=== PATIENT | female | born 2000 | race Asian ===

== ENCOUNTER → 2025-01-26 07:32 | Outpatient (REF) | payer BC, SELFPAY ==
[2025-01-28 06:54] LABS: Quantiferon Mitogen minus NIL 9.99 IU/mL; Quantiferon NIL 0.01 IU/mL; Quantiferon TB Gold Plus Negative (Negative)
== END ==
LOC: REG 07:32
PROVIDERS: ATTENDING PHYSICIAN Internal Medicine Geriatric Medicine; REFERRING PHYSICIAN Student in an Organized Health Care Education/Training Program
DX: Z01.84 Encounter for antibody response examination (principal)
CPT/HCPCS: 36415; 86480

== ENCOUNTER → 2025-03-27 20:37 | Outpatient (REF) | payer BC, SELFPAY | LOC: UCDH 20:37 | PROVIDERS: ATTENDING PHYSICIAN Physician Assistant | DX: J02.9 Acute pharyngitis, unspecified (principal) | CPT/HCPCS: 87070 ==

== ENCOUNTER → 2025-05-01 16:17 | Outpatient (REF) | payer BC, SELFPAY | LOC: CLAB 16:17 | PROVIDERS: ATTENDING PHYSICIAN Dermatology | DX: D48.5 Neoplasm of uncertain behavior of skin (principal) | CPT/HCPCS: 88305 ==